=== PATIENT | female | born 1950 | race Caucasian/White ===

== ENCOUNTER 2021-03-13 16:31 | Emergency (ER) | payer MEDICARE ==
[~2021-03-13 16:31] MED LIST: CALCIUM CHLORIDE 1,000 MG/10 ML SYRINGE IV ONE; DEXTROSE 50% IN WATER (25GM) 50 ML SYRINGE IV ONE; EPINEPHrine 1 MG/10 ML SYRINGE ONE
--- NOTE | 2021-03-13 16:39 | Emergency Department Report ---
ED CPR HPI - General Chief Complaint: Cardiac Arrest/CPR Stated Complaint: CARDIAC ARREST Time Seen by Provider: 03/13/21 16:36 Source: family, EMS Mode of arrival: Stretcher Limitations: Language Barrier - History of Present Illness Initial Comments: Patient is 71 years old female with no documented past medical history. Patient brought to the emergency room via EMS from home in a full cardiac arrest, CPR in progress. EMS stated that patient found by her family on the floor. EMS also reported that they do not know the last time she was seen normal. EMS stated that patient found to be in asystole. ACLS immediately started by EMS and patient intubated by EMS. Patient received epinephrine and bicarb by EMS. Upon arrival to the ER, ACLS protocol continued. Good breath sound on both side with no spontaneous breathing. Patient received dextrose, epinephrine, calcium chloride. Pupils are 4 mm fixed and dilated. Patient pronounced at 4:35 PM. For further information please refer to code sheet. Complaint: found unresponsive -: unknown Place: home Bystander CPR Performed: No Initial Findings in the Field: no respirations, no pulse, systole ROSC in the Field: No Treatments Prior to Arrival: intubation, chest compressions, epinephrine mgs #, sodium bicarbonate - Related Data Previous Rx's Medication Instructions Recorded Last Taken Type amLODIPine 5 mg PO DAILY #30 tab 10/15/19 Unknown Rx Allergies Allergy/AdvReac Type Severity Reaction Status Date / Time No Known Allergies Allergy Unverified 10/15/19 10:03 ED Review of Systems ROS: Stated complaint: CARDIAC ARREST Other details as noted in HPI Comment: Unobtainable due to pts medical conditions ED Past Medical Hx - Past Medical History Previous Medical History?: Yes Hx Hypertension: Yes - Surgical History Past Surgical History?: No - Social History Smoking Status: Never Smoker Substance Use Type: None - Medications Home Medications: Home Medications Medication Instructions Recorded Confirmed Last Taken Type amLODIPine 5 mg PO DAILY #30 tab 10/15/19 Unknown Rx ED Physical Exam - General Limitations: Language Barrier General appearance: other (CPR in progress.) - Head Head exam: Present: other (Dried blood on the right side of the face.) - Eye Pupils: Present: other (4 mm fixed and dilated.) - Respiratory Respiratory exam: Present: other (No spontaneous breathing) - Cardiovascular Cardiovascular Exam: Present: other (No heart tone) - GI/Abdominal GI/Abdominal exam: Present: soft. Absent: distended - Neurological Exam Neurological exam: Present: other (CPR in progress.) ED Medical Decision Making - Medical Decision Making Patient is 71 years old female with no documented past medical history. Patient brought to the emergency room via EMS from home in a full cardiac arrest, CPR in progress. EMS stated that patient found by her family on the floor. EMS also reported that they do not know the last time she was seen normal. EMS stated that patient found to be in asystole. ACLS immediately started by EMS and patient intubated by EMS. Patient received epinephrine and bicarb by EMS. Upon arrival to the ER, ACLS protocol continued. Good breath sound on both side with no spontaneous breathing. Patient received dextrose, epinephrine, calcium chloride. Pupils are 4 mm fixed and dilated. Patient pronounced at 4:35 PM. For further information please refer to code sheet. Patient family arrived to the ER. Patient daughter stated that she saw her around 2 PM today and she gave her some malia and she left to take care of her kids and when she returned back approximately 3:50PM she found in the living room floor. She stated that she recently diagnosed with high blood pressure and no other medical problem. She denied any complaint prior to leaving her around 2 PM. Family informed about her . Critical Care Time: Yes Critical care time in (mins) excluding proc time.: 35 Critical care attestation.: If time is entered above; I have spent that time in minutes in the direct care of this critically ill patient, excluding procedure time. ED Disposition Clinical Impression: Cardiopulmonary arrest Disposition: 20 Is pt being admited?: No Condition: Stable
== END 2021-03-14 04:25 ==
LOC: ED 16:31
DX: I46.9 Cardiac arrest, cause unspecified (principal)
CPT/HCPCS: 92950; 99285; J0171; J3490